=== PATIENT | female | born 1970 | race African-American/Black ===

== ENCOUNTER 2016-11-25 16:20 | Emergency (ER) | payer BC ==
[~2016-11-25 16:20] MED LIST: BACT800T5 PO
[2016-11-25 16:21] VITALS: BP 147/90; PULSE 98; RESP 15; TEMP 97.7; O2SAT 99
[2016-11-25] MEDS ORDERED: METH32TA PO (17:45)
--- NOTE | 2016-11-25 18:23 | PD ---
HPI Chief Complaint: Back/ Neck Pain or Injury Time Seen by Provider: 18:27 Travel History International Travel<30 days: No Contact w/Intl Traveler<30days: No Traveled to known affect area: No History of Present Illness HPI 46-year-old female presents to the ED for evaluation of week long history of low back pain. Gradual onset, rated 6/10, exacerbated by certain movements. Patient states the pain radiates around bilateral hips and into the groin, right side greater than left. She denies shooting down the legs, numbness, tingling, weakness, limitations to range of motion of the extremities, saddle anesthesia, urinary or fecal incontinence, known injury. She states she has otherwise been feeling well. She saw her primary care provider yesterday. She received an injection of steroids and a stepdown course of steroids. She has not yet had the prescriptions filled. She denies chronic health problems. Takes no daily medications. PFSH Past Medical History Anemia: Yes Blood Disorders: No Cancer: No Cardiovascular Problems: No Endocrine: No Genitourinary: No Immune Disorder: No Musculoskeletal: No Neurologic: No Psychiatric: No Reproductive: Yes (HEAVY MENES) Respiratory: No Tubal Ligation: Yes Past Surgical History AICD: No Arteriovenous Shunt: No Hysterectomy: Yes Insulin Pump: No Joint Replacement: No Pacemaker: No Social History Alcohol Use: Yes Tobacco Use: Yes (1/2 PPD) Substance Use: No Allergies-Medications (Allergen,Severity, Reaction): Coded Allergies: Penicillin (Verified Allergy, Mild, RASH, 11/25/16) Reported Meds & Prescriptions Reported Meds & Active Scripts Active Flexeril (Cyclobenzaprine HCl) 10 Mg Tab 10 Mg PO TID Ibuprofen 800 Mg Tab 800 Mg PO Q8H PRN Reported Methylprednisolone 32 Mg Tab Unknown Dose PO BID Review of Systems Except as stated in HPI: all other systems reviewed are Neg Physical Exam Narrative GENERAL: Well-nourished, well-developed obese black female in no acute distress. SKIN: Warm and dry. There is a nontender, mobile, subcentimeter nodule in the soft tissues just right lateral of the midline in the lumbar area. HEAD: Normocephalic. EYES: No scleral icterus. No injection or drainage. NECK: Supple, trachea midline. No JVD or lymphadenopathy. CARDIOVASCULAR: Regular rate and rhythm without murmurs, gallops, or rubs. 2+ DP and radial pulses bilaterally. RESPIRATORY: Breath sounds clear and equal bilaterally. No accessory muscle use. GASTROINTESTINAL: Abdomen soft, non-tender, nondistended. Active bowel sounds. MUSCULOSKELETAL: No cyanosis, or edema. 5/5 strength of dorsiflexion and plantarflexion in bilateral lower extremities. 5/5 strength of knee and hip flexion of bilateral extremities. Straight leg raise negative bilaterally. Sensation intact to light touch distally. Cap refill less than 2 seconds. BACK: No obvious deformity. No midline tenderness. No CVA tenderness. Tender to palpation of the paraspinal musculature in the lumbar region. Data Data Last Documented VS Vital Signs Date Time Temp Pulse Resp B/P Pulse Ox O2 Delivery O2 Flow Rate FiO2 11/25/16 16:21 97.7 98 15 147/90 99 MDM Medical Decision Making Medical Screen Exam Complete: Yes Emergency Medical Condition: Yes Differential Diagnosis Lumbago versus sciatica versus muscle spasm versus radiculopathy versus arthritis versus other Narrative Course 46-year-old female presents to the ED for evaluation of week long history of low back pain. Gradual onset, rated 6/10, exacerbated by certain movements. Patient states the pain radiates around bilateral hips and into the groin, right side greater than left. She denies shooting down the legs, numbness, tingling, weakness, limitations to range of motion of the extremities, saddle anesthesia, urinary or fecal incontinence, known injury. She saw her primary care provider yesterday. She received an injection of steroids. Vitals reviewed. Physical exam is reassuring. There is tenderness to palpation of the lumbar musculature without midline tenderness. Straight leg raise negative bilaterally. No loss of strength in the extremities. Neurovascularly intact. There is a subcentimeter, nontender, mobile nodule in the subcutaneous tissues just right lateral of the lumbar spine. This is low back pain with muscle spasm. I recommended watchful waiting of the nodule of the skin, follow up with the primary care in 2 weeks to 1 month if not resolved. Patient was prescribed ibuprofen and Flexeril. We discussed symptomatic treatment, reasons to return to the ED. She indicated understanding of the instructions, is amenable to plan of care. She is stable and discharged home. Diagnosis Primary Impression: Low back pain Qualified Code: M54.5 - Acute bilateral low back pain without sciatica Additional Impression: Muscle spasm Patient Instructions: Acute Low Back Pain (ED), General Instructions, Lower Back Exercises (ED), Muscle Spasm (ED) Additional Instructions: Rest, hydrate. Resume normal, gentle activities as tolerated. A mixture of rest and activity is best for back pain. No strenuous physical activities for the next few days Ibuprofen as prescribed, as needed for muscle aches. Flexeril up to 3 times a day, as needed for muscle spasm. Do not operate a vehicle while taking Flexeril. Applying ice or heat to areas with sore muscles may help to improve your patient. Do not apply ice/ heat for longer than 20 m/h. Gentle massage may also improve years symptoms. Follow-up with your primary care provider in next week Return to the ED for any urgent or emergent medical condition. Med/Other Pt SpecificInfo: Prescription(s) given Scripts Cyclobenzaprine (Flexeril)10 Mg Tab10 Mg PO TID #20 TAB Ref 0 Prov:Eliza Ignacio MD 11/25/16 Ibuprofen 800 Mg Sdi536 Mg PO Q8H PRN (Pain/Inflammation) #15 TAB Ref 0 Prov:Eliza Ignacio MD 11/25/16 Disposition: 01 DISCHARGE HOME Condition: Stable Natalie Hagen Nov 25, 2016 18:23
[2016-11-25] MEDS ORDERED: CYCL1TAB29 PO (18:57)
[2016-11-25] MEDS ORDERED: IBUP800T23 PO (18:57)
== END 2016-11-25 19:24 | disposition home or self-care (01) ==
LOC: NETRI 16:20
DX: M54.5 Low back pain (principal); M62.830 Muscle spasm of back; D64.9 Anemia, unspecified; F17.210 Nicotine dependence, cigarettes, uncomplicated
CPT/HCPCS: 99283